=== PATIENT | male | born 1965 | race Caucasian/White ===

== ENCOUNTER 2020-12-15 19:31 | Inpatient (IN) | payer BC, SELFPAY ==
--- NOTE | ~2020-12-15 | CT_ITS ---
EXAMINATION: CTA chest PE protocol DATE: 12/15/2020 21:13 INDICATION: Shortness of breath. Elevated d-dimer. TECHNIQUE: Computed tomography (CT) pulmonary angiogram of the chest was performed with 100 mL Omnipa que-350 intravenous contrast. Additional 3D reconstructions utilizing coronal maximum intensity proje ction (MIP) were performed. Automated exposure control and iterative reconstruction technique were em ployed. The dose-length product was 992.19 mGy-cm. COMPARISON: None FINDINGS: Good contrast opacification of the pulmonary arteries. There is mild streak artifact from dense contr ast in the superior vena cava and right atrium. Mild scattered respiratory motion artifact which does not significantly limit evaluation. Pulmonary arterial filling defects consistent with pulmonary emb ricardo are seen in a branch of the lateral basilar segmental pulmonary artery of the right lower lobe an d branch of the anterobasilar subsegmental pulmonary artery, the superior segmental pulmonary artery of the lingula and in subsegmental pulmonary arteries of the anterior segmental pulmonary arteries of both the right and left upper lobes. Mild linear discoid atelectasis at the lingula. No pneumonia, p ulmonary edema, pleural effusion or pneumothorax. Heart size is normal. No leftward bowing of the deb tricular septum to suggest right heart strain. No pericardial effusion. Thoracic aorta is normal in c aliber with no dissection. Goiter with thyroid nodule at the intrathoracic extension of the left thyr oid lobe with there is a 2.8 cm nodule. No pathologically enlarged thoracic lymphadenopathy. Moderate thoracic spondylosis. IMPRESSION: 1. Multiple scattered pulmonary emboli with small to moderate clot burden. Reviewed, dictated and finalized at location A.
--- NOTE | ~2020-12-15 | US_ITS ---
EXAMINATION: US venous doppler [facility] DATE: 12/16/2020 10:38 INDICATION: Lower limb pain. TECHNIQUE: Grayscale ultrasound images without and with compression and Doppler ultrasound images of the bilateral lower extremity veins were obtained. COMPARISON: None. FINDINGS: The visualized portions of right common femoral vein, profunda (deep) femoral vein, peroneal veins, a nd greater saphenous vein outflow are patent. There is thrombus in right femoral vein, popliteal vein , and gastrocnemius and posterior tibial veins. The visualized portions of left common femoral vein, profunda femoral vein, femoral vein, popliteal v ein, peroneal veins, posterior tibial veins, and greater saphenous vein outflow are patent. IMPRESSION: 1. Acute deep vein thrombosis involving right femoral vein, popliteal vein, and gastrocnemius and po sterior tibial veins. Reviewed, dictated and finalized at location A. IMPRESSION: 1. Acute deep vein thrombosis involving right femoral vein, popliteal vein, an d gastrocnemius and posterior tibial veins.
--- NOTE | ~2020-12-15 | US_ITS ---
EXAMINATION: US thyroid DATE: 12/18/2020 09:11 INDICATION: Goiter TECHNIQUE: Multiple ultrasound images of the thyroid were obtained. COMPARISON: None. FINDINGS: The right thyroid lobe measures 5.0 x 2.3 x 1.9 cm. The left thyroid lobe measures 6.2 x 2.6 x 2.9 c m. 6 mm TI RADS 1 anechoic cyst at the upper pole of the right thyroid. 3.0 cm wider than tall solid hypoechoic nodule with smooth margins and without echogenic foci (TI-RADS 4, moderately suspicious , FNA if >=1.5 cm, annual followup is >=1 cm) at the inferior left thyroid lobe. There is a 3 mm coars e calcification also in the inferior left thyroid lobe without corresponding nodule. There is normal echotexture, echogenicity and vascular flow throughout the remainder of the thyroid gland. IMPRESSION: 1. 3.0 cm TI RADS 4 left thyroid nodule for which ultrasound-guided biopsy would be recommended. Reviewed, dictated and finalized at location A. IMPRESSION: 1. 3.0 cm TI RADS 4 left thyroid nodule for which ultrasound-guided biopsy woul d be recommended.
[2020-12-15 19:35] VITALS: BP 147/98; PULSE 98; RESP 16; TEMP 37.7; O2SAT 95
[2020-12-15 20:07] LABS: Basophils Absolute Auto 0.1 K/mm3 (0.0-0.1); Basophils Percent Auto 0.8 % (0.2-1.2); Eosinophils Absolute Auto 0.2 K/mm3 (0-0.3); Eosinophils Percent Auto 1.9 % (0-4.4); Hematocrit 48.8 % (42.0-52.0); Hemoglobin 17.1 g/dL (14.0-18.0); Immature Granulocyte Absolute 0.05 K/mm3 (0.00-0.031); Immature Granulocyte Percent A 0.4 % (0-0.5); Lymphocytes Absolute Auto 2.11 K/mm3 (0.9-3.2); Lymphocytes Percent Auto 18.3 % (18.3-44.2); Mean Corpuscular Hemoglobin 32.2 pg (26-34); Mean Corpuscular Volume 91.9 fl (80-100); Mean Platelet Volume 9.8 fl (7.4-10.4); Monocytes Absolute Auto 1.2 K/mm3 (0.1-0.6); Monocytes Percent Auto 10.5 % (2.6-8.5); Neutrophils Absolute Auto 7.9 K/mm3 (1.3-6.7); Neutrophils Percent Auto 68.1 % (45.5-73.1); Platelet Count Result 246 k/mm3 (150-375); Red Blood Count 5.31 M/mm3 (4.6-6.20); Red Cell Distribution Width 12.8 % (11.5-14.5); White Blood Count 11.5 K/mm3 (4.5-10.0)
[2020-12-15 20:12] VITALS: BP 154/99; PULSE 88; RESP 16; TEMP 37.6; O2SAT 94
[2020-12-15 20:15] LABS: Anion Gap 14 mmol/L (8-16); Blood Urea Nitrogen 14 mg/dL (9-20); Calcium 9.5 mg/dL (8.4-10.2); Carbon Dioxide 29 mmol/L (22-30); Chloride 96 mmol/L (98-107); Estimated CRCL calculation 95 ml/min; Estimated Glomerular Filt Rate > 60; Glucose 111 mg/dL (65-110); Potassium 3.2 mmol/L (3.4-5.0); Sodium 139 mmol/L (137-145)
[2020-12-15 20:32] LABS: D Dimer 3.89 ug/mL (<0.48)
[2020-12-15 20:47] VITALS: BP 139/89; PULSE 86; RESP 18; O2SAT 96
--- NOTE | 2020-12-15 21:06 | ED.LOWEXIN ---
HPI - Extremity Injury (Lower) General Chief Complaint: Extremity Injury, Lower Stated Complaint: lower leg pain/swelling Time Seen by Provider: 12/15/20 20:56 Source: patient Mode of arrival: ambulatory Limitations: no limitations History of Present Illness HPI Narrative: Patient is a 55-year-old male complaining of right leg pain that started today. Patient states his pain is a dull ache, 5/10, nonradiating. Patient denies any injury to the area. Patient states that he has been on a plane traveling. Denies any chest pain, shortness of breath, fever or chills. Patient denies any history of blood clots. Related Data Allergies Allergy/AdvReac Type Severity Reaction Status Date / Time meperidine [From Demerol] Allergy Nausea and Verified 12/15/20 20:19 Vomiting Review of Systems Review of Systems: All systems reviewed & are unremarkable except as noted in HPI and below Constitutional: Constitutional: Denies body ache(s), Denies chills, Denies excessive sweating, Denies fatigue, Denies fever(s), Denies headache(s), Denies lethargy, Denies malaise, Denies weakness and Denies weight loss Eyes: Eyes: Denies blurry vision, Denies change in vision and Denies loss of vision ENT: Denies dizziness, Denies ear discharge, Denies headache(s), Denies lip swelling, Denies epistaxis, Denies nasal congestion, Denies neck pain, Denies throat swelling and Denies tongue swelling Cardiovascular: Cardiovascular: Denies chest pain, Denies chest pain at rest, Denies chest pain with activity, Denies diaphoresis, Denies rapid heart rate, Denies edema, Denies irregular heart rhythm, Denies lightheadedness, Denies palpitations, Denies dyspnea and Denies dyspnea on exertion Respiratory: Respiratory: Denies chest congestion, Denies cough, Denies hemoptysis, Denies dyspnea and Denies dyspnea on exertion Gastrointestinal: Gastrointestinal: Denies abdominal pain, Denies melena, Denies hematochezia, Denies diarrhea, Denies nausea, Denies vomiting and Denies hematemesis Musculoskeletal: Musculoskeletal: Denies abnormal gait, Denies deformity, Denies joint swelling, Denies limited range of motion, Denies neck pain and Denies numbness Neurologic: Denies Abnormal speech present, Denies abnormal gait, Denies confusion, Denies dizziness, Denies headache(s), Denies focal weakness, Denies loss of vision, Denies numbness, Denies Other visual disturbances, Denies Sensory deficit (Neuro) and Denies weakness Psychiatric: Psychiatric: Denies confusion, Denies depression, Denies auditory hallucinations, Denies homicidal ideation and Denies suicidal ideation Endocrine: Endocrine: Denies cold intolerance, Denies excessive sweating, Denies fatigue, Denies heat intolerance and Denies palpitations Hematologic/Lymphatic: Hematologic/Lymphatic: Denies easy bleeding and Denies easy bruising Allergic/Immunologic: Allergic/Immunologic: Denies lip swelling, Denies throat swelling and Denies tongue swelling PMFSH Comments Past medical history: Hypertension Family history: Hypertension, diabetes, negative for blood clots Social history: Non-smoker no EtOH or drug use Exam Const: General: cooperative, healthy appearing, comfortable, no acute distress, well developed, alert and awake; No confusion Orientation/consciousness: oriented to person, oriented to place, oriented to time, patient oriented x3 and No confusion Limitations: no limitations HENMT: Head: normal to inspection, normocephalic and atraumatic Ears: hearing grossly normal bilaterally, TM normal on the right and TM normal on the left General nose exam: Normal external nose present, Normal nares present and No nasal discharge present Face and sinus: normal facial exam Mouth: Yes Normal oral and palatal mucosa present, Yes lip normal, Yes tongue normal and Yes oropharynx normal Throat: posterior oropharynx normal, tonsils normal and uvula midline Eyes: General: appearance normal, both eyes and all related structures Pup
[2020-12-15] MEDS: LACTATED RINGERS 1,000 ML 999 ML IV CONT (21:20)
[2020-12-15 21:30] VITALS: BP 158/97
[2020-12-15 21:44] VITALS: PULSE 86; O2SAT 97
[2020-12-15] MEDS: POTASSIUM CHLORIDE 20 MEQ TABLET 40 MEQ PO (23:11)
[2020-12-15] MEDS: HEPARIN SODIUM 5,000 UNITS/ML VIAL 5000 UNITS IV PUSH (23:20)
[2020-12-15] MEDS: HEPARIN SOD/D5W 100 UNITS/ML 25,000 UNITS/250 ML BAG 15 UNITS IV CONT (23:20)
--- NOTE | 2020-12-15 23:24 | PC.NURSE ---
Baseline PT/INR drawn peripherally prior to administration of Heparin
[2020-12-15 23:34] VITALS: BP 134/93; PULSE 80; RESP 18; O2SAT 94
[2020-12-15 23:37] LABS: INR 1.1; Prothrombin Time 13.6 Seconds (11.1-14.7)
[2020-12-15 23:38] LABS: Partial Thromboplastin Time 31.1 SECONDS (22.3-36.8)
[2020-12-16] VITALS (15 sets, daily range): BP systolic 135–149; BP diastolic 84–97; PULSE 69–89; RESP 14–20; TEMP 36.2–36.9; O2SAT 91–98; BMI 36.0
--- NOTE | 2020-12-16 | ECHO_ITS ---
Patient Info Name: Aashish Huynh Age: 55 years : 1965 Gender: Male Ht: 73 in Wt: 270 lbs BSA: 2.55 m2 HR: 72 bpm BP: 138 / 87 mmHg Technical Quality: Good Exam Date: 12/16/2020 8:58 AM Exam Location: [facility] Patient Status: Outpatient Admit Date: 12/15/2020 Staff Ordering Physician: Artur Pool MD Drama Teacher: Mihaela Wetzel RDCS Attending Provider: Artur Pool MD Exam Type: CA echo dop color flow w con Study Info Indications - PULMONARY EMBOLISM Complete two-dimensional, color flow and Doppler transthoracic echocardiogram is performed with contrast to opacify the left ventricle and to improve the deliniation of the left ventricle endocardial borders. Contrast/Agitated Saline Contrast/Ag. Saline: Definity Amount: 1.00 ml Administered By: Jessica Umana RN Existing IV Access: Yes IV Access Condition: patent with no signs of infiltration Summary 1. Left ventricular chamber dimension is normal. 2. Definity contrast administered improved wall motion interpretation. 3. Left ventricular systolic function is normal, estimated at 60-65%. 4. The left ventricular diastolic function is grade II diastolic dysfunction. 5. E/e' 10 is mildly elevated. 6. Global longitudinal strain is mildly abnormal at -16.2%. 7. No pulmonary hypertension, estimated pulmonary arterial systolic pressure is 19 mmHg. Left Ventricle Definity contrast administered improved wall motion interpretation. E/e' 10 is mildly elevated. Global longitudinal strain is mildly abnormal at -16.2%. Left ventricular chamber dimension is normal. Left ventricular systolic function is normal, estimated at 60-65%. The left ventricular diastolic function is grade II diastolic dysfunction. Right Ventricle Right ventricular chamber dimension is not well visualized. Right ventricular systolic function is normal. Left Atria Left atrial chamber dimension is normal. Right Atria Right atrial chamber dimension is normal. Aortic Valve The aortic valve is trileaflet. There is no aortic valve stenosis. There is no aortic valve regurgitation. Pulmonic Valve There is no pulmonic regurgitation. Mitral Valve There is no mitral valve stenosis. There is no mitral valve regurgitation. Tricuspid Valve There is no tricuspid valve regurgitation. No pulmonary hypertension, estimated pulmonary arterial systolic pressure is 19 mmHg. Pericardium/Pleural There is no pericardial effusion. Inferior Vena Cava Normal inferior vena cava with >50% collapse upon inspiration consistent with normal right atrial pressure, 5 mmHg. Aorta The aortic root size at the sinus of Valsalva is normal. Left Ventricular Outflow Tract Name Value Normal LVOT 2D LVOT Diameter 2.10 cm LVOT Doppler LVOT Peak Gradient 7 mmHg LVOT Mean Gradient 4 mmHg LVOT VTI 23.58 cm LVOT VTI/AV VTI Ratio 0.86 LVOT Stroke Volume 81.32 ml LVOT CO
--- NOTE | 2020-12-16 01:05 | ADMGEN ---
This patient, Aashish Huynh, was admitted to [facility]. Patient/family oriented to hospital policies and general routines including ID bracelet, bed and alarms, visiting hours, pain management, procedures, bathroom and other care routines, personal items, smoking policy, room service/diet, and visiting hours. Information on how to activate the Rapid Response Team has been discussed. Patient/Family are encouraged to report perceived risks to care and to ask questions if they do not understand what they are told or what they should do.
--- NOTE | 2020-12-16 01:20 | PC.NURSE ---
Provider at bedside to assess patient.
--- NOTE | 2020-12-16 01:27 | PM.IMHP ---
H&P: HPI History of Present Illness Date/Time: 12/16/20 01:27 Chief Complaint: Right leg pain Narrative: Patient is a 55-year-old male who presents to the ED today with complaints of right thigh pain that started since Saturday. Patient states that he recently went [place] via train and came back on Saturday. The ride was 30 hours long when he got back was 24 hours when he went there. He started having leg pain more so in the thigh area since Saturday morning before he got in the train to come back. After he had been in the train the thigh pain got progressed and worsened and to involve his leg as well. he does comes in today to the ED for evaluation. He denies any chest pain or shortness of breath. He does report that he feels his right leg is bigger than the left side. He denies any history of blood clot in the past or any injury to the area. In the ED he was evaluated with D-dimer which came back elevated. They were not able to do a Doppler at that time and hence he got a CTA done which showed multiple scattered pulmonary emboli with small to moderate clot burden. He was started on heparin drip since then and is admitted for further evaluation and management. Review of Systems Review of Systems: - CONSTITUTIONAL: Denies weight loss, fever and chills. - HEENT: Denies changes in vision and hearing - RESPIRATORY: Denies SOB and cough. - CV: Denies palpitations and CP. - GI: Denies abdominal pain, nausea, vomiting and diarrhea. - : Denies dysuria and urinary frequency. - MSK: Denies myalgia and joint pain. - SKIN: Denies rash and pruritus. - NEUROLOGICAL: Denies headache and syncope. - PSYCHIATRIC: Denies recent changes in mood. Denies anxiety and depression. All systems reviewed & are unremarkable except as noted in HPI and below Constitutional: Constitutional: Reports fatigue and Reports weakness Neurologic: Reports weakness Endocrine: Endocrine: Reports fatigue PMFSH Past Medical History Medical History (Updated 12/16/20 @ 02:34 by Artur Pool MD) Hypertension Family History Family History (Updated 12/16/20 @ 01:35 by Makenna Echeverria, RN) Grandparent Atrial fibrillation Mother Atrial fibrillation Sibling Multiple sclerosis Social History Social History (Updated 12/16/20 @ 01:38 by Makenna Echeverria RN) Smoking status: Never smoker Alcohol intake: current Drinks per week: 3 Alcohol use details: beer Substance use: never Substance use type: does not use Occupation/Education: other Gender identity (if verbalized by the patient): Male Spiritual care concerns: No Agree to blood products: No Meds Home Medications and Allergies Home Medications Medication Instructions Recorded Confirmed Type amlodipine 5 mg DAILY 12/16/20 12/16/20 History cyclobenzaprine 10 mg PO Q6-8H PRN 12/16/20 12/16/20 History hydrochlorothiazide 25 mg PO DAILY 12/16/20 12/16/20 History hydrocodone-acetaminophen 5 - 325 tablet PO Q4-6H PRN 12/16/20 12/16/20 History metoprolol succinate 25 mg PO DAILY 12/16/20 12/16/20 History Allergies Allergy/AdvReac Type Severity Reaction Status Date / Time meperidine [From Demerol] Allergy Nausea and Verified 12/15/20 20:19 Vomiting Vital Signs Vital Signs - 24 hr 12/15/20 19:35 12/15/20 20:12 12/15/20 20:47 Temperature 99.8 F H 99.7 F H Pulse Rate 98 88 86 Respiratory Rate 16 16 18 Blood Pressure 147/98 H 154/99 H 139/89 Pulse Oximetry 95 94 96 12/15/20 21:30 12/15/20 21:44 12/15/20 23:34 Temperature Pulse Rate 86 80 Respiratory Rate 18 Blood Pressure 158/97 H 134/93 H Pulse Oximetry 97 94 Exam Narrative: GENERAL: The patient is well developed, not in acute distress HEENT: Nonicteric sclerae, PERRLA, EOMI. Oropharynx clear. Moist mucous membranes. Conjunctivae appear well perfused. CHEST: Chest wall is nontender. HEART: Regular rate and rhythm without murmur, rubs, or gallops LUNGS: Clear to ausc
--- NOTE | 2020-12-16 03:27 | PC.NURSE ---
Patient resting quietly in bed with eyes closed. Appears to be asleep. Respirations regular and non-labored. VSS. Call-light within reach. Will continue to monitor.
--- NOTE | 2020-12-16 05:12 | PC.NURSE ---
Lab at bedside to draw 6 hr PTT.
[2020-12-16 05:41] LABS: Basophils Absolute Auto 0.1 K/mm3 (0.0-0.1); Basophils Percent Auto 1.1 % (0.2-1.2); Eosinophils Absolute Auto 0.3 K/mm3 (0-0.3); Eosinophils Percent Auto 3.1 % (0-4.4); Hematocrit 44.3 % (42.0-52.0); Hemoglobin 15.5 g/dL (14.0-18.0); Immature Granulocyte Absolute 0.05 K/mm3 (0.00-0.031); Immature Granulocyte Percent A 0.5 % (0-0.5); Lymphocytes Absolute Auto 3.19 K/mm3 (0.9-3.2); Lymphocytes Percent Auto 30.6 % (18.3-44.2); Mean Corpuscular Hemoglobin 32.3 pg (26-34); Mean Corpuscular Volume 92.3 fl (80-100); Mean Platelet Volume 9.9 fl (7.4-10.4); Monocytes Absolute Auto 1.1 K/mm3 (0.1-0.6); Monocytes Percent Auto 10.1 % (2.6-8.5); Neutrophils Absolute Auto 5.7 K/mm3 (1.3-6.7); Neutrophils Percent Auto 54.6 % (45.5-73.1); Platelet Count Result 217 k/mm3 (150-375); Red Cell Distribution Width 12.7 % (11.5-14.5); White Blood Count 10.4 K/mm3 (4.5-10.0)
[2020-12-16 06:01] LABS: Partial Thromboplastin Time 52.6 SECONDS (22.3-36.8)
[2020-12-16] MEDS: HEPARIN SODIUM 5,000 UNITS/ML VIAL 8000 UNITS IV PUSH (06:28)
--- NOTE | 2020-12-16 07:03 | PC.NURSE ---
Patient resting comfortably in bed. No complaints. Speaking on phone with his . provided updated on patient's condition. VSS. Heparin drip rate adjusted per protocol and infusing through R AC PIV. Call-light within reach.
--- NOTE | 2020-12-16 07:19 | PC.NURSE ---
Pt report given to KILLIAN Lopez. All questions answered and care of patient transferred.
--- NOTE | 2020-12-16 08:15 | PC.NURSE ---
GERARD Siddiqui BRUSH HOLDER INSPECTOR HERE TO SEE PT. NOTIFIED OF NO REPEAT BMP ORDERED FOR THIS AM. ORDER RECEIVED TO CHECK BMP. HEPARIN GTT CONTINUES AT 1900 UNITS/HR OR 19ML/HR. DENIES CP OR SOB. REPORTS R. INNER THIGH TO POSTERIOR KNEE TO CALF SORE. MILDLY PINK SKIN NOTED TO R. CALF. R. CALF IS LARGER AND MORE FIRM THAN LEFT. OANH'S SIGN IS NEG. R. CALF IS WARM, NOT HOT. WILL CONTINUE TO MONITOR.
[2020-12-16 08:45] LABS: Anion Gap 6 mmol/L (8-16); Blood Urea Nitrogen 12 mg/dL (9-20); Calcium 8.9 mg/dL (8.4-10.2); Carbon Dioxide 32 mmol/L (22-30); Chloride 99 mmol/L (98-107); Estimated CRCL calculation 115 ml/min; Estimated Glomerular Filt Rate > 60; Glucose 109 mg/dL (65-110); Potassium 3.3 mmol/L (3.4-5.0); Sodium 137 mmol/L (137-145)
[2020-12-16] MEDS: amLODIPine BESYLATE 5 MG TABLET BY MOUTH (08:47)
[2020-12-16] MEDS: hydroCHLOROthiazide 25 MG TABLET PO (08:47)
[2020-12-16] MEDS: METOPROLOL SUCCINATE EXT REL 25 MG TABCR PO (08:47)
--- NOTE | 2020-12-16 08:50 | PC.NURSE ---
ECHO IN PROGRESS AT BEDSIDE.
[2020-12-16] MEDS: PERFLUTREN LIPID MICROSPHERES 1.5 ML VIAL DILUTED TO 10 ML TOTAL VOLUME IV PUSH (09:20)
--- NOTE | 2020-12-16 10:15 | PC.NURSE ---
DOWN VIA WC FOR VENOUS DOPPLERS. HEPARIN GTT CONTINUES.
--- NOTE | 2020-12-16 11:35 | PC.NURSE ---
RESULTS OF VENOUS DOPPLERS CALLED TO GERARD Siddiqui NP. ALSO NOTIFIED OF K+ LEVEL OF 3.3 FROM THIS AM. ORDERS RECEIVED TO REPLETE K+ AND RECHECK BMP IN AM.
--- NOTE | 2020-12-16 12:05 | PM.IMPN ---
Progress Note: A&P Assessment and Plan (1) Acute pulmonary embolism: Qualifiers: Acute cor pulmonale presence: without acute cor pulmonale Pulmonary embolism type: unspecified Qualified Code(s): I26.99 - Other pulmonary embolism without acute cor pulmonale Code(s): I26.99 - Other pulmonary embolism without acute cor pulmonale Status: Acute Assessment and Plan: - Continue Heparin drip in light of no right heart strain for at least 24 hours - Will need transition to Eliquis or Xarelto prior to discharge. - Telemetry monitoring - Repeat BMP in AM. (2) Right leg pain: Code(s): M79.604 - Pain in right leg Status: Acute Assessment and Plan: - Continue with Waldron 5/325 po daily for pain control. (3) Hypertension: Qualifiers: Hypertension type: primary hypertension Qualified Code(s): I10 - Essential (primary) hypertension Code(s): I10 - Essential (primary) hypertension Status: Chronic Assessment and Plan: - Currently well controlled. - Will continue current medications of Amlodipine 5 mg po daily and metoprolol succinate 25 mg po daily. - Continue to monitor BP. Subjective Date/time seen: 12/16/20 0900 This pt. was examined at the bedside and has only complaints of right leg pain. He states that he has intact sensation with no numbness or tingling of the lower extremities. He denies any CP or any dyspnea. He remains on Heparin drip currently, less than 24 hours. ECHO was performed of the heart that shows no right heart strain. In addition, the venous dopplers returned with results of acute deep vein thrombosis involving the right femoral vein, popliteal vein, and gastrocnemius and posterior tibial veins. Pt. will need to be switched to oral anticoagulation prior to discharge. Review of Systems Review of Systems: All systems reviewed & are unremarkable except as noted in HPI and below Musculoskeletal: Musculoskeletal: Reports as per HPI Comments: There is pain noted in the RLE without any signs of any arterial involvement. Exam Const: General: uncomfortable Other: Secondary to pain in the RLE. Neck: Neck: supple Resp: Effort & Inspection: normal respiratory effort Auscultation: clear to auscultation bilaterally, no crackles, no rales, no rhonchi, no wheezes and lung sounds not diminished Cardio: Rate: regular rate Rhythm: regular rhythm GI: GI Palp: Yes Soft to palpation and No Tenderness to palpation present (GI) Auscultation: normal bowel sounds Skin: General skin exam: normal color and no erythema Neuro: General: gait normal Cognition (Neuro): normal cognition Speech: normal speech Motor exam (neuro): 5/5 motor strength present throughout and Normal motor muscle tone present throughout Sensory Exam: normal sensation Extrem: General: normal to inspection Right upper extremity: normal to inspection Left upper extremity: normal to inspection Right lower extremity: full ROM, normal capillary refill and edema Left lower extremity: normal to inspection Other: RLE is edematous from the level of the thigh all the way to the foot. In addition, it is warm to the touch. There is no deficit of AROM. No pallor of the skin or mottling. Psych: Mental Status: mental status grossly normal Affect: normal affect Objective Data Vital Signs Vital Signs: Vital Signs - 24 hr 12/15/20 19:35 12/15/20 20:12 12/15/20 20:47 Temperature 37.7 C H 37.6 C H Pulse Rate 98 88 86 Respiratory Rate 16 16 18 Blood Pressure 147/98 H 154/99 H 139/89 Pulse Oximetry 95 94 96 12/15/20 21:30 12/15/20 21:44 12/15/20 23:34 Temperature Pulse Rate 86 80 Respiratory Rate 18 Blood Pressure 158/97 H 134/93 H Pulse Oximetry 97 94 12/16/20 01:10 12/16/20 01:56 12/16/20 02:00 Temperature 36.9 C Pulse Rate 81 76 Respiratory Rate 14 Blood Pressure 138/94 H Pulse Oximetry 98 12/16/20 04:00 12/16/20 04:15 12/16/20 06:00 Temperat
[2020-12-16 12:42] LABS: Partial Thromboplastin Time 99.5 SECONDS (22.3-36.8)
[2020-12-16] MEDS: POTASSIUM CHLORIDE 20 MEQ TABLET 40 MEQ PO (13:32)
[2020-12-16] MEDS: HEPARIN SOD/D5W 100 UNITS/ML 25,000 UNITS/250 ML BAG 19 UNITS IV CONT (14:17)
--- NOTE | 2020-12-16 14:48 | PC.NURSE ---
DR. CONNER HERE TO SEE PT. CONDITION UPDATE GIVEN.
[2020-12-16 18:08] LABS: Partial Thromboplastin Time 65.5 SECONDS (22.3-36.8)
[2020-12-16] MEDS: HEPARIN SODIUM 5,000 UNITS/ML VIAL 4000 UNITS IV PUSH (18:18)
[2020-12-17] VITALS (14 sets, daily range): BP systolic 138–161; BP diastolic 83–101; PULSE 74–89; RESP 18–20; TEMP 36.3–36.7; O2SAT 96–99
[2020-12-17 00:57] LABS: Partial Thromboplastin Time 87.6 SECONDS (22.3-36.8)
[2020-12-17] MEDS: HEPARIN SOD/D5W 100 UNITS/ML 25,000 UNITS/250 ML BAG 21 UNITS IV CONT (03:49)
[2020-12-17 06:42] LABS: Basophils Absolute Auto 0.1 K/mm3 (0.0-0.1); Eosinophils Absolute Auto 0.2 K/mm3 (0-0.3); Eosinophils Percent Auto 2.4 % (0-4.4); Hematocrit 45.7 % (42.0-52.0); Hemoglobin 15.7 g/dL (14.0-18.0); Immature Granulocyte Absolute 0.04 K/mm3 (0.00-0.031); Immature Granulocyte Percent A 0.4 % (0-0.5); Lymphocytes Absolute Auto 2.52 K/mm3 (0.9-3.2); Lymphocytes Percent Auto 26.1 % (18.3-44.2); Mean Corpuscular HGB Conc 34.4 g/dl (32-36); Mean Corpuscular Hemoglobin 31.9 pg (26-34); Mean Corpuscular Volume 92.9 fl (80-100); Mean Platelet Volume 9.7 fl (7.4-10.4); Monocytes Percent Auto 9.9 % (2.6-8.5); Neutrophils Absolute Auto 5.8 K/mm3 (1.3-6.7); Neutrophils Percent Auto 60.2 % (45.5-73.1); Platelet Count Result 248 k/mm3 (150-375); Red Blood Count 4.92 M/mm3 (4.6-6.20); Red Cell Distribution Width 12.5 % (11.5-14.5); White Blood Count 9.7 K/mm3 (4.5-10.0)
[2020-12-17 06:47] LABS: Anion Gap 7 mmol/L (8-16); Blood Urea Nitrogen 9 mg/dL (9-20); Carbon Dioxide 29 mmol/L (22-30); Chloride 100 mmol/L (98-107); Estimated CRCL calculation 115 ml/min; Estimated Glomerular Filt Rate > 60; Glucose 114 mg/dL (65-110); Potassium 3.5 mmol/L (3.4-5.0); Sodium 136 mmol/L (137-145)
[2020-12-17 06:52] LABS: Partial Thromboplastin Time 64.1 SECONDS (22.3-36.8)
[2020-12-17] MEDS: HEPARIN SODIUM 5,000 UNITS/ML VIAL 4000 UNITS IV PUSH (07:04)
[2020-12-17 07:42] LABS: Thyroid Stimulating Hormone Reflex 0.288 uIU/mL (0.465-4.68)
[2020-12-17] MEDS: amLODIPine BESYLATE 5 MG TABLET BY MOUTH (08:50)
[2020-12-17] MEDS: hydroCHLOROthiazide 25 MG TABLET PO (08:50)
[2020-12-17] MEDS: METOPROLOL SUCCINATE EXT REL 25 MG TABCR PO (08:50)
--- NOTE | 2020-12-17 10:02 | PM.IMPN ---
Progress Note: A&P Assessment and Plan (1) Acute pulmonary embolism: Qualifiers: Acute cor pulmonale presence: without acute cor pulmonale Pulmonary embolism type: unspecified Qualified Code(s): I26.99 - Other pulmonary embolism without acute cor pulmonale Code(s): I26.99 - Other pulmonary embolism without acute cor pulmonale Status: Acute Assessment and Plan: - Continue Heparin drip in light of no right heart strain for at least 24 hours - Will need transition to Eliquis or Xarelto prior to discharge. - Telemetry monitoring - Repeat BMP in AM. (2) Right leg pain: Code(s): M79.604 - Pain in right leg Status: Acute Assessment and Plan: - Continue with [place] 5/325 po daily for pain control. (3) Hypertension: Qualifiers: Hypertension type: primary hypertension Qualified Code(s): I10 - Essential (primary) hypertension Code(s): I10 - Essential (primary) hypertension Status: Chronic Assessment and Plan: - Currently well controlled. - Will continue current medications of Amlodipine 5 mg po daily and metoprolol succinate 25 mg po daily. - Continue to monitor BP. Subjective Date/time seen: 12/17/20 10:02 Patient was seen during the morning rounds today. Patient is feeling slightly better. Decreased shortness of breath no chest pain. No abdominal pain, no nausea, no vomiting. Swelling of the right leg still present. Review of Systems Review of Systems: All systems reviewed & are unremarkable except as noted in HPI and below Constitutional: Constitutional: Reports fatigue and Reports weakness Musculoskeletal: Musculoskeletal: Reports as per HPI Neurologic: Reports weakness Endocrine: Endocrine: Reports fatigue Exam Const: General: uncomfortable Neck: Neck: supple Resp: Effort & Inspection: normal respiratory effort Auscultation: clear to auscultation bilaterally, no crackles, no rales, no rhonchi, no wheezes and lung sounds not diminished Cardio: Rate: regular rate Rhythm: regular rhythm GI: Auscultation: normal bowel sounds Skin: General skin exam: normal color and no erythema Neuro: General: gait normal Cognition (Neuro): normal cognition Speech: normal speech Motor exam (neuro): 5/5 motor strength present throughout and Normal motor muscle tone present throughout Sensory Exam: normal sensation Extrem: General: normal to inspection, normal exam except as noted and no edema Right upper extremity: normal to inspection Left upper extremity: normal to inspection Right lower extremity: full ROM, normal capillary refill and edema Left lower extremity: normal to inspection Psych: Mental Status: mental status grossly normal Affect: normal affect Objective Data Vital Signs Vital Signs: Vital Signs - 24 hr 12/16/20 12:00 12/16/20 14:00 12/16/20 16:00 Temperature 36.6 C 36.9 C Pulse Rate 76 76 84 Respiratory Rate 19 18 Blood Pressure 149/87 H 141/88 H Pulse Oximetry 91 96 12/16/20 18:00 12/16/20 20:00 12/16/20 22:00 Temperature Pulse Rate 82 87 86 Respiratory Rate 20 Blood Pressure 135/97 H Pulse Oximetry 12/17/20 00:01 12/17/20 02:00 12/17/20 04:00 Temperature Pulse Rate 87 77 77 Respiratory Rate 20 20 Blood Pressure 147/101 H 138/87 Pulse Oximetry 99 99 12/17/20 06:00 12/17/20 08:00 12/17/20 08:50 Temperature 36.4 C L Pulse Rate 84 77 81 Respiratory Rate Blood Pressure Pulse Oximetry Intake/Output Intake/Output: Intake & Output 12/14/20 12/15/20 12/16/20 12/17/20 23:59 23:59 23:59 23:59 Intake Total 1000 1120 250 Output Total 3375 600 Balance 1000 -0715 -350 Meds/Results Medications: Active Medications Generic Name Dose Route Start Last Admin Trade Name Freq PRN Reason Stop Dose Admin Hydrocodone Bitart/Acetaminophen 1 tab 12/16/20 01:34 Hydrocodone/Acetaminophen (*Crx) 5-325 Mg Tablet PO Q4-6H PRN Pain Rated 4-6
--- NOTE | 2020-12-17 10:25 | PC.NURSE ---
Addendum entered by Anuradha Isaac RN 12/17/20 10:28: Note written on incorrect patient, please disregard Original Note: 1000- RT has not been in to administer 0800 nebulizers, called RT to come to patient room.
--- NOTE | 2020-12-17 10:27 | PC.NURSE ---
1000 - nurse's note written on incorrect patient.
[2020-12-17 13:14] LABS: Partial Thromboplastin Time 74.3 SECONDS (22.3-36.8)
--- NOTE | 2020-12-17 13:32 | PC.NURSE ---
1330- PTT results 74.3, no bolus or rate change in Heparin per protocol.
[2020-12-17] MEDS: HEPARIN SOD/D5W 100 UNITS/ML 25,000 UNITS/250 ML BAG 23 UNITS IV CONT (16:20)
[2020-12-17 19:24] LABS: Partial Thromboplastin Time 73.8 SECONDS (22.3-36.8)
[2020-12-18] VITALS (7 sets, daily range): BP systolic 121–146; BP diastolic 78–93; PULSE 72–84; RESP 17–20; TEMP 35.9; O2SAT 96
[2020-12-18] MEDS: HEPARIN SOD/D5W 100 UNITS/ML 25,000 UNITS/250 ML BAG 23 UNITS IV CONT (00:24)
--- NOTE | 2020-12-18 00:37 | PC.NURSE ---
pt's has second therapeutic PTT level, continuing heparin gtt at current rate of 2300units. no ptt order placed, new order for heparin gtt to be stopped at 0800 today and start Eliquis at 0900
[2020-12-18] MEDS: METOPROLOL SUCCINATE EXT REL 25 MG TABCR PO (08:00)
[2020-12-18] MEDS: amLODIPine BESYLATE 5 MG TABLET BY MOUTH (08:00)
[2020-12-18] MEDS: APIXABAN 5 MG TABLET 10 MG PO (08:00)
[2020-12-18] MEDS: hydroCHLOROthiazide 25 MG TABLET PO (08:01)
[2020-12-18 10:28] LABS: Total Triiodothyronine (T3) 1.16 NG/ML (0.97-1.69)
--- NOTE | 2020-12-18 10:35 | PM.DS ---
DS: Admitting Diagnosis Discharge Date Pulmonary embolism Admitting Diagnosis pulmonary embolism hypertension DS: Discharge Diagnosis Discharge Diagnosis (1) Acute pulmonary embolism: Qualifiers: Acute cor pulmonale presence: without acute cor pulmonale Pulmonary embolism type: unspecified Qualified Code(s): I26.99 - Other pulmonary embolism without acute cor pulmonale Code(s): I26.99 - Other pulmonary embolism without acute cor pulmonale Status: Acute Assessment and Plan: - Continue Heparin drip in light of no right heart strain for at least 24 hours - Will need transition to Eliquis or Xarelto prior to discharge. - Telemetry monitoring - Repeat BMP in AM. (2) Right leg pain: Code(s): M79.604 - Pain in right leg Status: Acute Assessment and Plan: - Continue with [place] 5/325 po daily for pain control. (3) Hypertension: Qualifiers: Hypertension type: primary hypertension Qualified Code(s): I10 - Essential (primary) hypertension Code(s): I10 - Essential (primary) hypertension Status: Chronic Assessment and Plan: - Currently well controlled. - Will continue current medications of Amlodipine 5 mg po daily and metoprolol succinate 25 mg po daily. - Continue to monitor BP. DS: Summary Hospital Course Reason for hospitalization: pulmonary embolism Hospital Course: patient is 55 years old male with history of hypertension was admitted complained of having leg pain, patient was found to have pulmonary embolism. Patient was given anticoagulation. Later on converted to p.o. Eliquis. Patient did not have any complication during the stay in the hospital. Today patient is feeling better so patient discharged home stable condition Time spent discussing smoking cessation with patient: 3 to 10 minutes Status at Discharge Cognitive/behavioral status at discharge: stable Functional status at discharge: independent ambulation Overall status at discharge: patient is back to baseline Time Spent with Patient Time attestation: Total time spent providing and/or coordinating discharge services: Exam Const: General: uncomfortable Neck: Neck: supple Resp: Effort & Inspection: normal respiratory effort Auscultation: clear to auscultation bilaterally, no crackles, no rales, no rhonchi, no wheezes and lung sounds not diminished Cardio: Rate: regular rate Rhythm: regular rhythm GI: Auscultation: normal bowel sounds Skin: General skin exam: normal color and no erythema Neuro: General: gait normal Cognition (Neuro): normal cognition Speech: normal speech Motor exam (neuro): 5/5 motor strength present throughout and Normal motor muscle tone present throughout Sensory Exam: normal sensation Extrem: General: normal to inspection, normal exam except as noted and no edema Right upper extremity: normal to inspection Left upper extremity: normal to inspection Right lower extremity: full ROM, normal capillary refill and edema Left lower extremity: normal to inspection Psych: Mental Status: mental status grossly normal Affect: normal affect DS: Data Data Completed and Pending Labs on day of discharge: Labs from last 24 hours 12/17/20 12/17/20 12/17/20 19:03 12:57 06:27 APTT 73.8 H 74.3 H Free T4 Total T3 1.16 12/17/20 06:27 APTT Free T4 1.70 Total T3 Discharge Plan Discharge Attending physician on discharge: Germán Loyola Discharging Clinician: Germán Loyola Anticipated Discharge Date/Time: 12/19/20 10:32 Patient Disposition: Home, Self-Care Activity: as tolerated Diet: as tolerated and regular Patient Instructions: Antibiotic Form, Heparin/Dextrose Premix (Injection), Rivaroxaban (By mouth), Pulmonary Embolism (GEN), Deep Vein Thrombosis (GEN) Stand Alone Forms: General Discharge Information Follow-up/Referrals: Brittani,Jovany Hamilton MD [Primary Care Provider] - Discharge Medication
== END 2020-12-18 11:02 | disposition home or self-care (01) | DRG 176 ==
LOC: ANHED 23:06 → ANHCPC 23:38
PROVIDERS: Internal Medicine; Nurse Practitioner Adult Health; Admitting Provider Internal Medicine; Emergency Provider Emergency Medicine; PCP Internal Medicine; Visit Provider Internal Medicine
DX: I26.99 Other pulmonary embolism without acute cor pulmonale (principal); I82.491 Acute embolism and thrombosis of other specified deep vein of right lower extremity; M79.604 Pain in right leg; E04.9 Nontoxic goiter, unspecified; I10 Essential (primary) hypertension; Z79.899 Other long term (current) drug therapy
CPT/HCPCS: 36415; 71275; 76536; 80048; 84439; 84443; 84480; 85025; 85380; 85610; 85730; 93306; 93970; 96361; 96365; 96366; 96375; 99285; A9270; C8929; G0378; J1644; J7120; Q9957; Q9967

== ENCOUNTER 2023-02-25 12:32 | Observation (INO) | payer BC, SELFPAY ==
[2023-02-25] VITALS (16 sets, daily range): BP systolic 138–182; BP diastolic 87–109; PULSE 63–77; RESP 12–25; TEMP 36.4–36.6; O2SAT 94–100
--- NOTE | ~2023-02-25 | US_ITS ---
EXAMINATION: US venous doppler LE RT DATE: 02/25/2023 18:40 INDICATION: Right lower limb pain and swelling. TECHNIQUE: Grayscale ultrasound images without and with compression and Doppler ultrasound images of the right lower extremity veins were obtained. COMPARISON: Ultrasound 12/16/2020 FINDINGS: The visualized portions of right common femoral vein, profunda (deep) femoral vein, peroneal veins,, posterior tibial veins, and greater saphenous vein outflow are patent. There is thrombus in right fem oral vein and popliteal vein. There is a moderate-sized Franco's cyst. IMPRESSION: 1. Deep vein thrombosis involving right femoral vein and popliteal vein. I called this result to Marivel Carbone. 2. Moderate-sized Franco's cyst. Reviewed, dictated and finalized at location E. C PRODUCER IMPRESSION: 1. Deep vein thrombosis involving right femoral vein and popliteal vein. I karlee led this result to Catalina Carbone. 2. Moderate-sized Franco's cyst.
--- NOTE | ~2023-02-25 | CT_ITS ---
EXAMINATION: CTA chest PE protocol DATE: 02/25/2023 20:16 INDICATION: Acute deep vein thrombosis in right lower limb. TECHNIQUE: Computed tomography angiography (CTA) of the chest was performed with 100 mL Omnipaque-350 intravenous contrast timed to evaluate the pulmonary arteries. Coronal maximum intensity projection 3D-reconstructions were created by the technologist. Automated exposure control and iterative reconst ruction technique were employed. The dose-length product was 990.97 mGy-cm. COMPARISON: Chest CT 12/15/2020 FINDINGS: The lungs demonstrate mild atelectasis. No pleural effusion. The heart size is normal. No p ericardial effusion. There is no pulmonary embolus. There is mild thoracic spondylosis. IMPRESSION: 1. No pulmonary embolus. Reviewed, dictated and finalized at location E. CONSULTANT IMPRESSION: 1. No pulmonary embolus.
--- NOTE | 2023-02-25 17:42 | ED.EXTPRO ---
HPI - Extremity Problem General Chief complaint: Extremity Problem,Nontraumatic <Catalina Carbone PA-C - Last Filed: 02/25/23 21:22> Stated complaint: leg pain <MAGALI Pérez Last Filed: 02/25/23 21:22> Time Seen by Provider: 02/25/23 19:44 <MAGALI Pérez Last Filed: 02/25/23 21:22> Source: patient <MAGALI Pérez Last Filed: 02/25/23 21:22> Mode of arrival: ambulatory <MAGALI Pérez Last Filed: 02/25/23 21:22> Limitations: no limitations <MAGALI Pérez Last Filed: 02/25/23 21:22> History of Present Illness HPI Narrative: This is a 57-year-old male that presents to the emergency department for right lower extremity pain. Ongoing over the last 5 days. Reports associated calf swelling. The pain is behind his knee and radiates down his leg. Reports history of DVT. He takes Eliquis daily. Reports his pain feels similar to his previous DVT which prompted him to be seen. Denies chest pain or shortness of breath. <MAGALI Pérez Last Filed: 02/25/23 21:22> Related Data Home medications: Home Medications Medication Instructions Recorded Confirmed amlodipine 5 mg tablet 5 mg PO DAILY 12/16/20 02/26/23 hydrochlorothiazide 25 mg tablet 25 mg PO DAILY 12/16/20 02/26/23 metoprolol succinate 25 mg 50 mg PO DAILY 12/16/20 02/26/23 tablet,extended release 24 hr <MAGALI Pérez Last Filed: 02/25/23 21:22> Allergies/Adverse reactions: Allergies Allergy/AdvReac Type Severity Reaction Status Date / Time meperidine [From Demerol] Allergy Nausea and Verified 02/25/23 12:39 Vomiting <MAGALI Pérez Last Filed: 02/25/23 21:22> Review of Systems Review of Systems: CONSTITUTIONAL: Denies fever CARDIOVASCULAR: Reports edema. Denies chest pain RESPIRATORY: Denies dyspnea. MUSCULOSKELETAL: Reports myalgia. NEUROLOGIC: Denies numbness <Catalina Carbone PA-C - Last Filed: 02/25/23 21:22> All systems reviewed & are unremarkable except as noted in HPI and below <Catalina Carbone PA-C - Last Filed: 02/25/23 21:22> PMFSH Past Medical History Medical History: Medical History (Updated 02/26/23 @ 18:28 by Carmen Sprague APRN) History of DVT (deep vein thrombosis) History of pulmonary embolism Hypertension <Catalina Carbone PA-C - Last Filed: 02/25/23 21:22> Family History Family History: Family History Grandparent Atrial fibrillation Mother Atrial fibrillation Sibling Multiple sclerosis <Catalina Carbone PA-C - Last Filed: 02/25/23 21:22> Social History Social History: Social History Smoking status: Never smoker Alcohol intake: never Drinks per week: 3 Alcohol use details: beer Substance use: never Substance use type: does not use Lack of Transportation: No Lack of Food: Never True Current Housing: I Have Housing Concerned About Future Housing: No Difficulty Paying Gas/Electric Bills: No Difficulty Paying for Meds: No Currently Unemployed: No Education: High School Diploma/GED Difficulty w/ Childcare or Family Care: No Occupation/Education: other Gender identity (if verbalized by the patient): Male Spiritual care concerns: No Agree to blood products: No <Catalina Carbone PA-C - Last Filed: 02/25/23 21:22> Exam Narrative: GENERAL: Well-appearing, well-nourished, and in no acute distress. HEAD: Normocephalic, atraumatic. EYES: EOMI. CHEST: Clear to auscultation. No respiratory distress. No wheezes rales or rhonchi HEART: Regular rate and rhythm. No murmur heard. Normal peripheral pulses. EXTREMITIES: Normal range of motion. Mild non-pitting edema noted to the right lower extremity, no erythema or warmth. Normal DP pulse SKIN: Warm, dry, no rash. NEURO: No focal deficits. Alert and oriented x3. PSYCH: Normal mo
[2023-02-25 17:48] LABS: Basophils Absolute Auto 0.1 K/mm3 (0.0-0.1); Basophils Percent Auto 0.9 % (0.2-1.2); Eosinophils Absolute Auto 0.2 K/mm3 (0-0.3); Hematocrit 50.3 % (42.0-52.0); Hemoglobin 16.9 g/dL (14.0-18.0); Immature Granulocyte Absolute 0.03 K/mm3 (0.00-0.031); Immature Granulocyte Percent A 0.3 % (0-0.5); Lymphocytes Absolute Auto 2.99 K/mm3 (0.9-3.2); Lymphocytes Percent Auto 31.5 % (18.3-44.2); Mean Corpuscular HGB Conc 33.6 g/dl (32-36); Mean Corpuscular Hemoglobin 30.9 pg (26-34); Mean Platelet Volume 9.7 fl (7.4-10.4); Monocytes Absolute Auto 0.8 K/mm3 (0.1-0.6); Monocytes Percent Auto 8.1 % (2.6-8.5); Neutrophils Absolute Auto 5.4 K/mm3 (1.3-6.7); Neutrophils Percent Auto 57.2 % (45.5-73.1); Platelet Count Result 261 k/mm3 (150-375); Red Blood Count 5.47 M/mm3 (4.6-6.20); White Blood Count 9.5 K/mm3 (4.5-10.0)
[2023-02-25 17:58] LABS: Partial Thromboplastin Time 28.9 SECONDS (22.3-36.8)
[2023-02-25 17:59] LABS: Anion Gap 10 mmol/L (8-16); Blood Urea Nitrogen 21 mg/dL (9-20); Calcium 9.3 mg/dL (8.4-10.2); Carbon Dioxide 32 mmol/L (22-30); Chloride 95 mmol/L (98-107); Estimated CRCL calculation 114 ml/min; Estimated Glomerular Filt Rate > 60; Glucose 95 mg/dL (65-110); Potassium 3.5 mmol/L (3.4-5.0); Sodium 137 mmol/L (137-145)
--- NOTE | 2023-02-25 23:07 | PC.NURSE ---
report and care given to KILLIAN Knowles. all questions answered
[2023-02-25] MEDS: ENOXAPARIN 80 MG/0.8 ML SYRINGE SUB-Q (23:18)
[2023-02-25] MEDS: ENOXAPARIN 60 MG/0.6 ML SYRINGE 45 MG SUB-Q (23:20)
[2023-02-26 01:15] VITALS: BP 117/70; PULSE 63; RESP 14; O2SAT 94
--- NOTE | 2023-02-26 01:29 | ADMGEN ---
This patient, Aashish Huynh, was admitted to Medical Room 349-01. Patient/family oriented to hospital policies and general routines including ID bracelet, bed and alarms, visiting hours, pain management, procedures, bathroom and other care routines, personal items, smoking policy, room service/diet, and visiting hours. Information on how to activate the Rapid Response Team has been discussed. Patient/Family are encouraged to report perceived risks to care and to ask questions if they do not understand what they are told or what they should do.
[2023-02-26 06:00] VITALS: BP 134/84; PULSE 65; RESP 14; TEMP 36.6; O2SAT 95
--- NOTE | 2023-02-26 09:06 | PM.IMHP ---
H&P: HPI History of Present Illness Date/Time: 02/26/23 09:06 Chief Complaint: Leg pain Narrative: This is a 57 year old male with a significant past medical history of hypertension, PE,DVT on daily Eliquis anticoagulation who presents with right lower extremity pain that has been going on for the last 5 days. He was decreased on his dose of Eliquis to 2.5mg BID over 1 year ago and was fine up until 5 days ago. There was some calf swelling and pain behind his right knee that radiates down his leg. He states that the pain is similar to when he had a DVT in the past. Work up in the ER included venous dopplers which revealed DVT involving right femoral vein and popliteal vein, moderate sized bakers cyst. CTA of the chest was negative for pulmonary embolism. Labs were essentially unremarkable, K+ 3.5, Chloride 95, Bicarb 32, BG-95. He has normal kidney function. Heparin infusion initiated initially. Hematology was consulted. On examination today patient is alert and oriented x3, lying in the bed. He reports pain is much better than when he initially presented. He denies any nausea, vomiting, diarrhea, fever, chills, chest pain, abdominal pain, or shortness of breath. Vital signs are stable, he is on room air, and is afebrile. Labs were essentially unremarkable. He is stable for discharge. Patient will receive 1 more dose of therapeutic lovenox now and will start back on his Eliquis 5mg BID for 3 months. He will need to follow up with Hematology in 3 months for repeat doppler study and to get genetic testing as he has had multiple blood clots in the past. Hematology recommendations as below: Patient should continue Lovenox 1mg/kg until discharge. Then continue full dose Eliquis 5mg BID for 3 months. After 3 months, patient will need repeat doppler study to re-evaluate DVT. Since his second DVT was unprovoked, he will need genetic testing. Genetic testing cannot be performed with an active blood clot and while on a anticoagulant. I have provided the patient with our office information to follow up regarding recurring DVTS and for hypercoagulable work up. Review of Systems Review of Systems: All systems reviewed & are unremarkable except as noted in HPI and below Constitutional: Constitutional: Reports as per HPI and Reports no additional constitutional complaints Eyes: Eyes: Reports as per HPI and Reports no additional eye complaints ENT: Reports system reviewed and no additional complaints, except as documented and Reports as per HPI Cardiovascular: Cardiovascular: Reports as per HPI and Reports no additional cardiovascular complaints Respiratory: Respiratory: Reports as per HPI and Reports no additional respiratory complaints Gastrointestinal: Gastrointestinal: Reports as per HPI and Reports no additional gastrointestinal complaints Genitourinary: Genitourinary: Reports no additional male genitourinary complaints and Reports as per HPI Musculoskeletal: Musculoskeletal: Reports no additional musculoskeletal complaints and Reports as per HPI Integumentary/Breasts: Skin/Breast: Reports system reviewed and no additional complaints, except as docu and Reports as per HPI Neurologic: Reports system reviewed and no additional complaints, except as documented and Reports as per HPI Psychiatric: Psychiatric: Reports no additional psychiatric complaints and Reports as per HPI [facility] Past Medical History Medical History (Updated 02/26/23 @ 11:58 by Aliyah Magaña APRN) History of DVT (deep vein thrombosis) History of pulmonary embolism Hypertension Family History Family History Grandparent Atrial fibrillation Mother Atrial fibrillation Sibling Multiple sclerosis Social History Social History (Updated 12/16/20 @ 01:38 by Makenna Echeverria RN) Smoking status: Never smoker Alcohol intake: never Drinks per week: 3 Alcohol use details: beer Substance use: never Substance use ty
[2023-02-26 09:51] LABS: Basophils Absolute Auto 0.1 K/mm3 (0.0-0.1); Basophils Percent Auto 1.2 % (0.2-1.2); Eosinophils Absolute Auto 0.1 K/mm3 (0-0.3); Hematocrit 47.5 % (42.0-52.0); Hemoglobin 16.3 g/dL (14.0-18.0); Immature Granulocyte Absolute 0.02 K/mm3 (0.00-0.031); Immature Granulocyte Percent A 0.3 % (0-0.5); Lymphocytes Absolute Auto 1.96 K/mm3 (0.9-3.2); Lymphocytes Percent Auto 28.6 % (18.3-44.2); Mean Corpuscular HGB Conc 34.3 g/dl (32-36); Mean Corpuscular Hemoglobin 31.1 pg (26-34); Mean Corpuscular Volume 90.6 fl (80-100); Mean Platelet Volume 9.7 fl (7.4-10.4); Monocytes Absolute Auto 0.4 K/mm3 (0.1-0.6); Monocytes Percent Auto 6.1 % (2.6-8.5); Neutrophils Absolute Auto 4.2 K/mm3 (1.3-6.7); Neutrophils Percent Auto 61.8 % (45.5-73.1); Platelet Count Result 234 k/mm3 (150-375); Red Blood Count 5.24 M/mm3 (4.6-6.20); Red Cell Distribution Width 13.1 % (11.5-14.5); White Blood Count 6.9 K/mm3 (4.5-10.0)
[2023-02-26 10:02] LABS: Prothrombin Time 13.7 Seconds (11.1-14.7)
[2023-02-26 10:23] LABS: Alanine Aminotransferase 25 U/L (6-50); Albumin Level 4.5 g/dL (3.5-5.1); Alkaline Phosphatase 93 U/L (38-126); Anion Gap 13 mmol/L (8-16); Aspartate Amino Transferase 27 U/L (17-59); Bilirubin,Total 0.9 mg/dL (0.2-1.3); Blood Urea Nitrogen 14 mg/dL (9-20); Calcium 9.2 mg/dL (8.4-10.2); Carbon Dioxide 26 mmol/L (22-30); Chloride 96 mmol/L (98-107); Estimated CRCL calculation 127 ml/min; Estimated Glomerular Filt Rate > 60; Glucose 158 mg/dL (65-110); Potassium 3.4 mmol/L (3.4-5.0); Sodium 135 mmol/L (137-145)
--- NOTE | 2023-02-26 11:41 | PDONCCN ---
HPI - Date of Consult Date/Time: 02/26/23 17:03 <Lino Nayak - 02/26/23 17:05> 02/26/23 11:41 <Aliyah Magaña - 02/26/23 11:58> Requesting Physician: Bushra Holguin DO <Lino Nayak - 02/26/23 17:05> Bushra Holguin DO <Aliyah Magaña - 02/26/23 11:58> Primary Care Provider: Jovany Peter, <Lino Nayak - 02/26/23 17:05> Jovany Peter, <Aliyah Magaña - 02/26/23 11:58> - Consult Narrative Reason for consult: DVT <Aliyah Magaña - 02/26/23 11:58> Narrative: Aashish Huynh is a 57 year old male <Lino Nayak - 02/26/23 17:05> Aashish Huynh is a 57 year old male with a past medical history of HTN, PE, and DVT that was admitted for increased right calf pain. He stated the pain started from the back of his knee down towards his ankle and this is how it felt when he had a DVT in 2020. The DVT in 2020 was provoked by prolonged travel. He denies any recent travel, surgeries, hormone use, or smoking that would provoke this second DVT. 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 He was taking Eliquis 5mg in 2020 and his PCP decreased his Eliquis to 2.5mg BID last year and has been taking it religiously ever since. Ultrasound of R leg shows deep vein thrombosis involving right femoral vein and popliteal vein and a moderate sized salomon's cyst. CTA chest PE showed no pulmonary embolisms. Patient states his R calf pain has decreased since receiving Lovenox. <Aliyah Magaña 02/26/23 11:58> Review of Systems - Review of Systems All systems reviewed & are unremarkable except as noted in HPI and bel <Aliyah Magaña 02/26/23 11:58> - Musculoskeletal Comments: R calf pain <Aliyah Magaña 02/26/23 11:58> - Neurologic Reports system reviewed and no additional complaints, except as documented <Aliyah Magaña - 02/26/23 11:58> [facility] Medical History: Medical History (Last Updated 02/26/23 @ 09:25 by Carmen Sprague APRN) History of DVT (deep vein thrombosis) History of pulmonary embolism Hypertension <Lino NayakBri - 02/26/23 17:05> Medical History (Last Updated 02/26/23 @ 09:25 by Carmen Sprague APRN) History of DVT (deep vein thrombosis) History of pulmonary embolism Hypertension <Mj Magañane - 02/26/23 11:58> Family History: Family History (Last Reviewed 02/26/23 @ 01:30 by Emperatriz Petty RN) Grandparent Atrial fibrillation Mother Atrial fibrillation Sibling Multiple sclerosis <Lino NayakBri - 02/26/23 17:05> Family History (Last Reviewed 02/26/23 @ 01:30 by Emperatriz Petty RN) Grandparent Atrial fibrillation Mother Atrial fibrillation Sibling Multiple sclerosis <Mj Magañane - 02/26/23 11:58> - Social History Social History: Social History (Last Updated 12/16/20 @ 01:38 by Makenna Echeverria RN) Gender Identity: Gender identity (if verbalized by the patient): Male Alcohol Use: Alcohol intake: never Drinks per week: 3 Alcohol use details: beer Substance Use: Substance use: never Substance use type: does not use Others: Spiritual care concerns: No Agree to blood products: No Oppucation/Education: Occupation/Education: other Smoking Status: Smoking status: Never smoker Social Determinants of Health: Has the Lack of Transportation Kept You From Medical Appointments or From Getting Medications?: No Within the Past 12 Months, Were You Worried Whether Your Food Would Run Out Before You Got Money to Buy More?: Never True What is Your Housing Situation Today?: I Have Housing Are You Worried That in the Next 2 Months, You May Not Have Your Own Housing to Live In?: No Do You Have Trouble Paying Your Heating Or Electricity Bill?: No Do You Have Trouble Paying For Medicines?: No Are You Currently Unemployed and
[2023-02-26] MEDS: ENOXAPARIN 120 MG/0.8 ML SYRINGE SUB-Q (14:30)
--- NOTE | 2023-02-26 14:49 | PCCCNOTE ---
On 02/26/23, the student, Breana Echeverria, provided care and completed [facility] documentation on this patient. I have reviewed the student's documentation and agree with the findings.
[2023-02-26 15:02] VITALS: BP 149/86; PULSE 74; RESP 16; TEMP 36.6; O2SAT 96
--- NOTE | 2023-02-26 18:20 | PM.SD2 ---
Same Day Admit/Disch: [facility] History of Present Illness Chief complaint: DVT Narrative: DVT right calf pain history of PE and DVT hypertension FOR[facility], [facility] Past Medical History Medical History (Updated 02/26/23 @ 18:28 by Carmen Sprague APRN) History of DVT (deep vein thrombosis) History of pulmonary embolism Hypertension Family History Family History Grandparent Atrial fibrillation Mother Atrial fibrillation Sibling Multiple sclerosis Social History Social History Smoking status: Never smoker Alcohol intake: never Drinks per week: 3 Alcohol use details: beer Substance use: never Substance use type: does not use Lack of Transportation: No Lack of Food: Never True Current Housing: I Have Housing Concerned About Future Housing: No Difficulty Paying Gas/Electric Bills: No Difficulty Paying for Meds: No Currently Unemployed: No Education: High School Diploma/GED Difficulty w/ Childcare or Family Care: No Occupation/Education: other Gender identity (if verbalized by the patient): Male Spiritual care concerns: No Agree to blood products: No Same Day Admit/Disch: Med Pre-admit Medications Home Medications Medication Instructions Recorded Confirmed Type amlodipine 5 mg tablet 5 mg PO DAILY 12/16/20 02/26/23 History hydrochlorothiazide 25 mg tablet 25 mg PO DAILY 12/16/20 02/26/23 History metoprolol succinate 25 mg 50 mg PO DAILY 12/16/20 02/26/23 History tablet,extended release 24 hr apixaban 5 mg tablet (Eliquis) 5 mg PO BID DVT #60 tabs 02/26/23 Rx hydrocodone 5 mg-acetaminophen 325 1 tablet PO Q4H PRN Moderate Pain 02/26/23 Rx mg tablet (4-6) #20 tabs Review of Systems Review of Systems All systems reviewed & are unremarkable except as noted in HPI and below Constitutional Constitutional: Reports as per HPI and Reports no additional constitutional complaints Eyes Eyes: Reports as per HPI ENT Reports system reviewed and no additional complaints, except as documented and Reports as per HPI Cardiovascular Cardiovascular: Reports as per HPI and Reports no additional cardiovascular complaints Respiratory Respiratory: Reports as per HPI and Reports no additional respiratory complaints Gastrointestinal Gastrointestinal: Reports as per HPI and Reports no additional gastrointestinal complaints Genitourinary Genitourinary: Reports no additional male genitourinary complaints and Reports as per HPI Musculoskeletal Musculoskeletal: Reports no additional musculoskeletal complaints and Reports as per HPI Integumentary/Breasts Skin/Breast: Reports system reviewed and no additional complaints, except as docu and Reports as per HPI Neurologic Reports system reviewed and no additional complaints, except as documented and Reports as per HPI Psychiatric Psychiatric: Reports no additional psychiatric complaints and Reports as per HPI Endocrine Endocrine: Reports no additional endocrine complaints and Reports as per HPI Hematologic/Lymphatic Hematologic/Lymphatic: Reports no additional hematologic/lymphatic complaints and Reports as per HPI Allergic/Immunologic Allergic/Immunologic: Reports no additional allergic/immunologic complaints and Reports as per HPI Exam Narrative: General: In no acute distress, well nourished Head: atraumatic, no encephalopathy Eyes: EOMI, PERRLA, sclera clear ENT: moist mucous membranes, nasal passages clear Neck: supple, no JVD, no adenopathy, trachea midline Cardiac: Normal S1 and S2. No murmur, gallops or friction rubs, peripheral pulses intact. Respiratory: Lungs clear to auscultation, no adventitious lung sounds Gastrointestinal: soft, non-distended, non-tender, normoactive bowel sounds. : voiding without difficulty. Extremities: moves all extremities well, mild edema to right calf, good ROM, strength 5/5, pain is well controlled since st
== END 2023-02-26 16:04 | disposition home or self-care (01) ==
LOC: ANHED 21:19 → ANH3MEDSUR 22:12 → ANH3MED 02-26 00:38
PROVIDERS: Nurse Practitioner Acute Care; Admitting Provider Internal Medicine; Emergency Provider Physician Assistant; PCP Internal Medicine; Visit Provider Internal Medicine
DX: I82.411 Acute embolism and thrombosis of right femoral vein (principal); M71.21 Synovial cyst of popliteal space [Baker], right knee; I10 Essential (primary) hypertension; Z86.718 Personal history of other venous thrombosis and embolism; Z79.01 Long term (current) use of anticoagulants; Z79.891 Long term (current) use of opiate analgesic; Z79.899 Other long term (current) drug therapy
CPT/HCPCS: 36415; 71275; 80048; 80053; 85025; 85610; 85730; 93971; 96372; 99285; G0378; J1650; Q9967

== ENCOUNTER 2023-06-17 08:36 | Outpatient (CLI) | payer BC, SELFPAY ==
--- NOTE | ~2023-06-17 | US_ITS ---
EXAMINATION:US venous doppler LE RT INDICATION:Right leg pain. Previous DVT. Patient on blood thinners. TECHNIQUE: Multiple grayscale, color flow and Doppler images of the right lower extremity deep venous systems were obtained and reviewed. COMPARISON:Ultrasound dated 02/25/2023 FINDINGS: The common femoral, superficial femoral veins demonstrate normal respiratory variation, aug mentation and compressibility. There is persistent deep venous thrombosis in the left popliteal vein. Color flow is also seen within the posterior tibial, peroneal, greater saphenous and profunda veins. IMPRESSION: 1: Chronic deep venous thrombosis of the left popliteal vein. Reviewed, dictated and finalized at location B.
== END 2023-06-17 08:37 | disposition home or self-care (01) ==
LOC: ANHIMG 08:38
PROVIDERS: PCP Internal Medicine; Visit Provider Internal Medicine Hematology & Oncology
DX: I82.432 Acute embolism and thrombosis of left popliteal vein (principal)
CPT/HCPCS: 93971

== ENCOUNTER 2023-10-01 09:32 | Outpatient (CLI) | payer BC, SELFPAY ==
--- NOTE | ~2023-10-01 | US_ITS ---
EXAMINATION:US venous doppler LE RT INDICATION:DVT follow-up. Patient on blood thinners. TECHNIQUE: Multiple grayscale, color flow and Doppler images of the right lower extremity deep venous systems were obtained and reviewed. COMPARISON:Ultrasound dated 06/17/2023 FINDINGS: There is deep venous thrombosis of the right popliteal and gastrocnemius veins. The remainder of the right lower extremity veins are patent. IMPRESSION: 1: Deep venous thrombosis of the right popliteal and gastrocnemius veins. Reviewed, dictated and finalized at location B.
== END 2023-10-01 09:33 | disposition home or self-care (01) ==
LOC: ANHIMG 09:34
PROVIDERS: PCP Internal Medicine; Visit Provider Internal Medicine Hematology & Oncology
DX: I82.431 Acute embolism and thrombosis of right popliteal vein (principal); I82.461 Acute embolism and thrombosis of right calf muscular vein
CPT/HCPCS: 93971